=== PATIENT | male | born 1945 | race Native Hawaiian/Other Pacific Islander ===

== ENCOUNTER 2016-07-31 08:19 | Outpatient (CLI) | payer OTHER ==
[2016-07-31 09:04] LABS: PLATELET COUNT 240 K/uL (142-355)
[2016-07-31 09:44] LABS: POTASSIUM 3.7 mmol/L (3.6-5.2); SODIUM 132 mmol/L (136-145)
== END 2016-07-31 19:46 | disposition home or self-care (01) ==
LOC: LABW 08:19
PROVIDERS: Internal Medicine Nephrology
DX: I12.9 Hypertensive chronic kidney disease with stage 1 through stage 4 chronic kidney disease, or unspecified chronic kidney disease (principal); N18.3 Chronic kidney disease, stage 3 (moderate); E87.6 Hypokalemia; E16.1 Other hypoglycemia; D50.8 Other iron deficiency anemias
CPT/HCPCS: 36415; 80053; 80061; 82306; 82570; 82728; 83036; 83540; 83550; 83735; 83970; 84100; 84155; 84443; 84550; 85027; 85044

== ENCOUNTER 2017-01-26 08:15 | Outpatient (CLI) | payer OTHER ==
[2017-01-26 09:05] LABS: PLATELET COUNT 238 K/uL (142-355)
[2017-01-26 09:18] LABS: POTASSIUM 3.7 mmol/L (3.6-5.2)
[2017-01-26 09:43] LABS: SODIUM 134 mmol/L (136-145)
== END 2017-01-26 09:20 | disposition home or self-care (01) ==
LOC: LABW 08:15
PROVIDERS: Internal Medicine Nephrology
DX: I12.9 Hypertensive chronic kidney disease with stage 1 through stage 4 chronic kidney disease, or unspecified chronic kidney disease (principal); N18.3 Chronic kidney disease, stage 3 (moderate); R79.0 Abnormal level of blood mineral
CPT/HCPCS: 36415; 80053; 82306; 82570; 82728; 83036; 83540; 83550; 83735; 83970; 84100; 84155; 84550; 85027